=== PATIENT | female | born 1955 | race Caucasian/White ===

== ENCOUNTER 2016-08-27 09:53 | Emergency (ER) | payer BC, OTHER ==
[~2016-08-27] VITALS: Ht 160 cm; Wt 78.9 kg
[2016-08-27 09:59] VITALS: Ht 160 cm; Wt 78.9 kg
[2016-08-27] MEDS ORDERED: KETOROLAC 30 MG INJ IM STA (10:30)
--- NOTE | 2016-08-27 11:56 | RADRPT ---
PROCEDURE: XR Ankle. CLINICAL INDICATION: Ankle pain TECHNIQUE: Three views of the right ankle are available for review COMPARISON: None available FINDINGS: There are hardware tracts in the calcaneus likely from prior Achilles tendon repair or prior fractur e. Also partially assessed hardware at the midfoot. There are small well corticated fragment at th e lateral margin of the talus and tip of the medial malleolus likely sequelae of remote trauma. The remaining osseous structures appear intact. Moderate degenerative changes seen at the midfoot. Th ere is moderate soft tissue swelling and presence of a tibiotalar joint effusion. There is an os tr igonum versus intrarticular osseous body posteriorly, partially assessed. IMPRESSION: 1. Moderate soft tissue swelling and suggestion of a tibiotalar joint effusion. 2. Well corticated fragment at the lateral margin of the talus and tip of the medial malleolus like ly from remote trauma. If acute on chronic trauma is suspected, CT or MRI may be more sensitive. 3. Soft tissue swelling and tibiotalar joint effusion. 4. Partially assessed surgical changes at the calcaneus and midfoot. RPTAT: AA .Art Bansal MD, MD Date Time Electronically viewed and signed by .Art Bansal MD, on 08/27/2016 11:56 .d/
--- NOTE | 2016-08-27 11:59 | RADRPT ---
PROCEDURE: XR Lumbar Spine. CLINICAL INDICATION: Low back pain TECHNIQUE: Three views of the lumbar spine are available for review COMPARISON: None available FINDINGS: There is mild curvature convex left of the lumbar spine. There is marked endplate irregularity at t he inferior endplates of T12 and L1 which appear chronic in nature. No radiographic evidence for ac josiah vertebral body fracture is seen. Degenerative disk disease is present throughout the lumbar spi ne most pronounced at L2-L3 noting moderate to severe disk space narrowing at the right margin and m oderate to severe disk space narrowing at L5-S1. 1-2 mm of retrolisthesis seen at L2-L3 and 2-3 mm of retrolisthesis at L3-L4. 2-3 mm of retrolisthesis at L4-5 as well. Advanced facet arthropathy se en throughout the lumbar spine. Mild bilateral SI joint arthrosis. IMPRESSION: 1. Multilevel degenerative disk disease most pronounced at L2-L3 and L5-S1 noting moderate to severe disk space narrowing at L2-L3. 2. No radiographic evidence for acute fracture. 3. Facet arthropathy throughout the lumbar spine noting degenerative retrolisthesis at multiple lev els. RPTAT: AA .Art Bansal MD, Date Time Electronically viewed and signed by .Art Bansal MD, on 08/27/2016 11:59 .d/
[2016-08-27] MEDS ORDERED: KETO10TA PO (12:18)
--- NOTE | 2016-09-08 22:51 | ERA ---
ER Documentation Chief Complaint Date/Time DATE: 09/08/16 TIME: 22:43 Chief Complaint BACK PAIN X 1 MOS HPI This is a 60-year-old female presenting with 2 months of right foot pain and 1 month of lower back pain. Patient had multiple surgeries on the right ankle/ foot and 2 months ago had screws taken out. Patient has a history of arthritis. Patient has been taking Tylenol and acetaminophen with little relief. Patient is presenting with a request of pain medication until her orthopedic follow-up. Patient has no other complaints at this time. Denies any numbness, tingling, change in sensation, loss of bowel or bladder control, rapidly progressive neurological defects, headache, fever, pain with Valsalva, urinary retention or change in difficulty of ambulation. Denies any renal pathology. Patient is however having difficulty with ambulation secondary to pain of the right ankle. Patient has no other complaints and describes no other associated manifestations. Patient has expressed a history of opioid addiction. ROS All systems reviewed and are negative except as per history of present illness. Medications Home Meds Active Scripts Ketorolac Tromethamine* (Ketorolac Tromethamine*) 10 Mg Tablet, 10 MG PO Q6H Y for PAIN for 3 Days, TAB Prov:SIENA GOMEZ PA-C 08/27/16 Allergies Allergies: Coded Allergies: No Known Allergy (Unverified , 08/27/16) PMhx/Soc History of Surgery: Yes (RIGHT LUNG, RIGHT FOOT) Anesthesia Reaction: No Hx Neurological Disorder: No Hx Respiratory Disorders: No Hx Cardiac Disorders: No Hx Psychiatric Problems: Yes (BIPOLAR) Hx Miscellaneous Medical Probl: Yes (CA LUNG ) Hx Alcohol Use: Yes (QUIT 1993) Hx Substance Use: Yes (MARIJUANA) Hx Tobacco Use: Yes (LESS THAN A PACK/DAY) Smoking Status: Current every day smoker Physical Exam Physical Exam Const: Well-appearing happy 60-year-old female. Head: Atraumatic Eyes: Normal Conjunctiva ENT: Normal External Ears, Nose and Mouth. Neck: Full range of motion..~ No meningismus. Resp: Clear to auscultation bilaterally Cardio: Regular rate and rhythm, no murmurs Abd: Soft, non tender, non distended. Normal bowel sounds Skin: No petechiae or rashes Back: No midline or flank tenderness. Negative straight leg raise test. Ext: Limited range of motion secondary to pain of the right ankle. Full range of motion of the lower back. No cyanosis, or edema Neur: Awake and alert Psych: Patient began with normal mood and affect being happy but later changed to irritable and abnormal. Has denied any thoughts of hurting herself or others. Results 24 hrs Current Medications Medications (Trade) Dose Ordered Sig/Mata Route PRN Reason Start Time Stop Time Status Last Admin Dose Admin Ketorolac Tromethamine (Toradol) 30 mg ONCE STAT IM 08/27/16 10:30 08/27/16 10:33 DC 08/27/16 10:54 Procedures/MDM Patient is presenting with a chief complaint of lower back pain times 1 month right ankle pain 2 months as described in the history and physical examination. X-rays of the lumbar spine and right ankle were obtained. Patient was given ketorolac in the ED. Patient has showed signs of possible psychiatric history. Patient is also requesting a walking boot as she left [facility]. Patient is also mention being discharged from a psychiatric institute. At this time a very low suspicion for neurovascular compromise including cauda equina. Patient will be given ketorolac p.o. 4 days outpatient due to history of opioid dependence. I have explained to the patient that she needs to follow-up with PCP or pain clinic for further pain management. At this time a very low suspicion for the patient hurting herself or others. Have reviewed this case with my attending who has agreed with the assessment and plan. After patient was equipped with a boot I talked to her and she has agreed to the plan of management. Patient's vitals are stable and her current condition is appropriate for discharge. Patient will be discharged at this time with discharge instructions and return precautions. Departure Diagnosis: Primary Impression: Back pain Qualified Code: M54.5 - Chronic bilateral low back pain, with sciatica presence unspecified Additional Impression: Ankle arthritis Condition: Stable Patient Instructions: Back Pain (Acute Or Chronic) Referrals: [facility] 7 a.m.- 11 p.m. Every Day of the Week NO APPOINTMENT OR AUTHORIZATION NEEDED [facility] Hours: Mon-Fri 9:00 AM - 5:00 PM Additional Instructions: Follow up with your PCP within the next 1-3 days for a more thorough evaluation and a possible referral to a specialist. Return the the emergency department immediately if symptoms worsen or change. If you have any questions regarding medications, ask your pharmacist or us before you leave. If any adverse reactions occur while taking your medications, discontinue the treatment and return to the emergency department immediately. Take your medications as directed, and complete the entire course of treatment. SIENA GOMEZ PA-C Sep 08, 2016 22:50
== END 2016-08-27 13:09 | disposition home or self-care (01) ==
LOC: FTE 09:53
DX: M54.5 Low back pain (principal); M19.90 Unspecified osteoarthritis, unspecified site; F17.210 Nicotine dependence, cigarettes, uncomplicated
CPT/HCPCS: 72100; 73610; 96372; 99284; J1885